=== PATIENT | female | born 1940 | race Caucasian/White ===

== ENCOUNTER 2018-07-16 03:30 | Emergency (ER) | payer MEDICARE, BC ==
[~2018-07-16] VITALS: Ht 170.2 cm; Wt 75.0 kg
[~2018-07-16 03:30] MED LIST: ATEN50TA8 PO; DONE10TA37 PO; FLUO-186 PO; LISI10TA4 PO; LOVA40TA76 PO; MECL12.584 PO; MEMA10TA PO; METF-436 PO; OXYB5TAB80 PO; PIOG30TA2 PO
[2018-07-16] MEDS ORDERED: ONDA4TAB12 PO (05:11)
[2018-07-16] MEDS ORDERED: HYDR-3965 PO (05:11)
[2018-07-16] MEDS ORDERED: ondansetron 4mg rapidly disintigrating tab PO ONE (05:25)
[2018-07-16] MEDS ORDERED: HYDROcodone/acetaminophen 5mg/325mg tablet PO ONE (05:25)
[2018-07-16 05:31] VITALS: BP 160/62
== END 2018-07-16 05:32 | disposition home or self-care (01) ==
LOC: ER 03:31
DX: S32.19XA Other fracture of sacrum, initial encounter for closed fracture (principal); S00.83XA Contusion of other part of head, initial encounter; M25.551 Pain in right hip; M54.5 Low back pain; M19.90 Unspecified osteoarthritis, unspecified site; Z90.49 Acquired absence of other specified parts of digestive tract; Z98.890 Other specified postprocedural states; Z79.899 Other long term (current) drug therapy; W01.198A Fall on same level from slipping, tripping and stumbling with subsequent striking against other object, initial encounter; Y93.89 Activity, other specified; Y92.89 Other specified places as the place of occurrence of the external cause; Y99.9 Unspecified external cause status
CPT/HCPCS: 70450; 72131; 72192; 99284

== ENCOUNTER 2018-07-19 10:42 | Inpatient (IN) | payer MEDICARE, BC ==
[~2018-07-19] VITALS: Ht 167.6 cm; Wt 85.0 kg
[~2018-07-19 10:42] MED LIST changes: +HYDR-3965 PO; +ONDA4TAB12 PO
[2018-07-19] MEDS ORDERED: normal saline 1000ML IV soln IVB ONE (11:05)
[2018-07-19 11:30] LABS: BASOPHILS % (AUTO) 0.1 % (0-1); EOSINOPHILS # (AUTO) 0.1 X10'3 (0-0.9); EOSINOPHILS % (AUTO) 2.1 % (0-6); HEMATOCRIT 39.9 % (35.0-45.0); HEMOGLOBIN 13.1 g/dl (12.0-16.0); LYMPHOCYTES % (AUTO) 14.7 % (21-51); MEAN CORPUSCULAR HEMOGLOBIN 30.7 PG (27.0-31.0); MEAN CORPUSCULAR HGB CONC 32.9 % (33.0-36.5); MEAN CORPUSCULAR VOLUME 93.4 FL (78-98); MEAN PLATELET VOLUME 8.5 FL (7.4-10.4); MONOCYTES # (AUTO) 0.8 X10'3 (0-0.9); MONOCYTES % (AUTO) 12.3 % (2-12); NEUTROPHILS # (AUTO) 4.7 X10'3 (1.8-7.7); NEUTROPHILS % (AUTO) 70.8 % (42-75); PLATELET COUNT 158 X10'3 (140-440); RED BLOOD COUNT 4.27 X10'6 (4.20-5.60); RED CELL DISTRIBUTION WIDTH 13.3 % (11.5-14.5); WHITE BLOOD COUNT 6.7 X10'3 (4.5-11.0)
[2018-07-19 11:43] LABS: ALANINE AMINOTRANSFERASE 24 U/L (12-78); ALBUMIN 3.2 G/DL (3.4-5.0); ALBUMIN/GLOBULIN RATIO 0.8 (1.1-1.5); ALKALINE PHOSPHATASE 111 IU/L (46-116); ANION GAP 10 (8-16); ASPARTATE AMINO TRANSFERASE 26 U/L (10-37); BILIRUBIN,TOTAL 0.9 MG/DL (0.1-1.0); BLOOD UREA NITROGEN 19 MG/DL (7-18); BUN/CREATININE RATIO 17.9 (6.6-38.0); CALCIUM 9.4 MG/DL (8.5-10.1); CHLORIDE 100 MMOL/L (99-107); CREATININE 1.06 MG/DL (0.40-0.90); GLUCOSE 112 MG/DL (70-104); POTASSIUM 3.3 MMOL/L (3.5-5.1); SODIUM 140 MMOL/L (135-145); TOTAL PROTEIN 7.3 G/DL (6.4-8.2); eGFR 50 ML/MIN
[2018-07-19 12:22] LABS: CLARITY,URINE SLIGHTLY CLOUDY (Clear); COLOR,URINE YELLOW (Yellow); GLUCOSE, URINE NEGATIVE (Neg); KETONES,URINE TRACE mg/dl (Neg); LEUKOCYTE ESTERASE ,URINE NEGATIVE (Neg); NITRITES, URINE NEGATIVE (Neg); OCCULT BLOOD,URINE LARGE (Neg); PROTEIN,URINE 100 mg/dl (Neg)
[2018-07-19 12:29] LABS: UA COLLECTION TYPE STRAIGHT CATH
[2018-07-19 12:31] LABS: HYALINE CASTS 0-3 /LPF (NEGATIVE); SQUAMOUS EPITHELIAL CELL,UR MANY /LPF (FEW)
[2018-07-19 12:32] LABS: BACTERIA,URINE 1+ /HPF (Neg); RBC,URINE 20-50 /HPF (0-2); WBC,URINE 0-4 /HPF (0-4)
[2018-07-19] MEDS ORDERED: fentaNYL/PF 50MCG/1 ML 2ML syringe IV ONE (12:35)
[2018-07-19 13:12] LABS: CKMB RELATIVE INDEX 1.7 RATIO (0-2.5); CREATINE KINASE 255 U/L (26-192)
[2018-07-19] MEDS ORDERED: HYDROcodone/acetaminophen 5mg/325mg tablet PO PRN (13:25)
[2018-07-19] MEDS ORDERED: ondansetron/PF 4mg/2ml inj IV PRN (13:25)
[2018-07-19] MEDS ORDERED: magnesium hydroxide 30ml (MOM) UD suspension PO PRN (13:25)
[2018-07-19] MEDS ORDERED: morphine 2 MG/ML inj. syringe IV PRN ×2 (13:25)
[2018-07-19] MEDS ORDERED: acetaminophen 325mg tablet PO PRN ×2 (13:25)
[2018-07-19] MEDS ORDERED: potassium Cl 40MEQ/NS 500ml 500 ML IV PRN ×2 (13:25)
[2018-07-19] MEDS ORDERED: potassium Cl 20 mEq SR tablet PO PRN (13:25)
[2018-07-19] MEDS ORDERED: magnesium 4gm in 100ml NS 100 ML IV PRN (13:25)
--- NOTE | 2018-07-19 16:48 | NUR ---
SPOKE TO NALLELY IN RT SHE STATES THAT WE DO NOT HAVE A RUMMBLE VEST OR COUGH ASSIST, I WILL PAGE HOSPITALIST AND REQUEST AN ORDER FOR THE FAMILY TO BRING THERES IN AND ALLOW THEM TO USE THEM TO TREAT HER
[2018-07-19] MEDS: potassium Cl 20 mEq SR tablet PO PRN (18:10)
[2018-07-19] MEDS: HYDROcodone/acetaminophen 10/325mg tab PO PRN (18:26)
[2018-07-19] MEDS ORDERED: ondansetron 4mg rapidly disintigrating tab PO PRN (18:45)
[2018-07-19] MEDS ORDERED: meclizine 12.5mg tablet PO SCH (18:45)
--- NOTE | 2018-07-19 19:09 | NUR ---
CALLED TO GIVE REPORT, SPOKE TO RIVERA LEON THAT NURSES HAVE NOT BEEN GIVEN THE STICKERS WITH THE PT NAMES ON THEM YET SO THEY DONT KNOW THAT THEY ARE BEING GIVEN PATIENTS, THEY WILL CALL BACK
--- NOTE | 2018-07-19 19:37 | NUR ---
CALLED TO GIVE REPORT, WAS TOLD THAT THE NURSE, CLAY, IS IN A PRECAUTION ROOM GIVING MEDS, WILL CALL ME BACK
[2018-07-19] MEDS: memantine 5mg tablet PO SCH (20:15)
[2018-07-19] MEDS: heparin, porcine 5000 units/ml vial SQ SCH (20:15)
[2018-07-19] MEDS: metFORMIN 500mg tablet PO SCH (20:15)
[2018-07-19 20:29] VITALS: BP 165/66
[2018-07-19 22:08] LABS: HEMOGLOBIN A1C 6.2 % (4.5-6.2)
[2018-07-20] MEDS: HYDROcodone/acetaminophen 10/325mg tab PO PRN ×5 (05:00→23:53)
[2018-07-20 05:50] LABS: BASOPHILS % (AUTO) 0.3 % (0-1); EOSINOPHILS # (AUTO) 0.1 X10'3 (0-0.9); EOSINOPHILS % (AUTO) 2.3 % (0-6); HEMATOCRIT 39.2 % (35.0-45.0); HEMOGLOBIN 13.2 g/dl (12.0-16.0); LYMPHOCYTES # (AUTO) 1.2 X10'3 (1.1-4.8); LYMPHOCYTES % (AUTO) 19.8 % (21-51); MEAN CORPUSCULAR HEMOGLOBIN 31.2 PG (27.0-31.0); MEAN CORPUSCULAR HGB CONC 33.7 % (33.0-36.5); MEAN CORPUSCULAR VOLUME 92.7 FL (78-98); MEAN PLATELET VOLUME 8.8 FL (7.4-10.4); MONOCYTES # (AUTO) 0.6 X10'3 (0-0.9); MONOCYTES % (AUTO) 10.3 % (2-12); NEUTROPHILS # (AUTO) 4.1 X10'3 (1.8-7.7); NEUTROPHILS % (AUTO) 67.3 % (42-75); PLATELET COUNT 152 X10'3 (140-440); RED BLOOD COUNT 4.23 X10'6 (4.20-5.60); RED CELL DISTRIBUTION WIDTH 13.6 % (11.5-14.5); WHITE BLOOD COUNT 6.1 X10'3 (4.5-11.0)
[2018-07-20 06:15] LABS: ANION GAP 14 (8-16); BLOOD UREA NITROGEN 18 MG/DL (7-18); BUN/CREATININE RATIO 18.9 (6.6-38.0); CALCIUM 9.2 MG/DL (8.5-10.1); CHLORIDE 102 MMOL/L (99-107); CREATININE 0.95 MG/DL (0.40-0.90); GLUCOSE 83 MG/DL (70-104); MAGNESIUM 1.5 MG/DL (1.5-2.4); POTASSIUM 3.4 MMOL/L (3.5-5.1); SODIUM 141 MMOL/L (135-145); TOTAL CARBON DIOXIDE 25.1 MMOL/L (24-32); eGFR 57 ML/MIN
--- NOTE | 2018-07-20 06:30 | NUR ---
Patient in room MAXX 355. I have received report from LACHO Elliott and had the opportunity to ask questions and assume patient care.
[2018-07-20 07:00] VITALS: BP 144/71
[2018-07-20] MEDS: FLUoxetine 10mg capsule PO SCH (08:30)
[2018-07-20] MEDS: potassium Cl 20 mEq SR tablet PO PRN ×3 (08:30→16:43)
[2018-07-20] MEDS: pioglitazone 15mg tablet PO SCH (08:30)
[2018-07-20] MEDS: atorvastatin 20mg tablet PO SCH (08:30)
[2018-07-20] MEDS: memantine 5mg tablet PO SCH ×2 (08:30→20:01)
[2018-07-20] MEDS: metFORMIN 500mg tablet PO SCH ×2 (08:30→20:00)
[2018-07-20] MEDS: donepezil 5mg tablet PO SCH (08:31)
[2018-07-20] MEDS: oxybutynin 5mg tablet PO SCH (08:31)
[2018-07-20] MEDS: lisinopril 10 MG tablet PO SCH (08:31)
[2018-07-20] MEDS: K and/or MAG REPLACEMENT MC SCH (08:32)
[2018-07-20] MEDS: heparin, porcine 5000 units/ml vial SQ SCH ×2 (08:32→20:01)
[2018-07-20] MEDS ORDERED: glucagon, human recombinant 1mg kit SUBCUT PRN (10:30)
[2018-07-20] MEDS ORDERED: dextrose ORAL solution 15 GM/59 ML bottle PO PRN ×2 (10:30)
[2018-07-20] MEDS ORDERED: magnesium hydroxide 30ml (MOM) UD suspension PO PRN (10:30)
[2018-07-20] MEDS ORDERED: MESSAGE TO PHARMACY PO ONE (10:30)
[2018-07-20] MEDS ORDERED: insulin Lispro (HumaLOG) vial - multi-dose SQ SCH (10:30)
[2018-07-20] MEDS ORDERED: dextrose 50%-water 50ml dispensing syringe IV PRN ×2 (10:30)
[2018-07-20 11:30] VITALS: BP 134/68
[2018-07-20] MEDS ORDERED: meclizine 12.5mg tablet PO PRN (16:33)
--- NOTE | 2018-07-20 18:45 | NUR ---
Problems reprioritized. Patient report given, questions answered & plan of care reviewed with LACHO Garces.
[2018-07-20 20:00] VITALS: BP 158/68
[2018-07-20] MEDS: docusate sod 100mg capsule PO SCH (20:00)
[2018-07-20] MEDS ORDERED: insulin glargine (Lantus) pen - multi-dose SQ SCH (21:00)
[2018-07-21] VITALS: BP 149/64
[2018-07-21 05:26] LABS: ALBUMIN 2.8 G/DL (3.4-5.0); ANION GAP 9 (8-16); BLOOD UREA NITROGEN 24 MG/DL (7-18); BUN/CREATININE RATIO 23.5 (6.6-38.0); CALCIUM 8.9 MG/DL (8.5-10.1); CHLORIDE 104 MMOL/L (99-107); CREATININE 1.02 MG/DL (0.40-0.90); GLUCOSE 86 MG/DL (70-104); MAGNESIUM 1.4 MG/DL (1.5-2.4); POTASSIUM 4.3 MMOL/L (3.5-5.1); SODIUM 140 MMOL/L (135-145); TOTAL CARBON DIOXIDE 26.6 MMOL/L (24-32); eGFR 53 ML/MIN
[2018-07-21 05:47] LABS: BASOPHILS % (AUTO) 0.3 % (0-1); EOSINOPHILS # (AUTO) 0.2 X10'3 (0-0.9); EOSINOPHILS % (AUTO) 2.2 % (0-6); HEMATOCRIT 39.2 % (35.0-45.0); HEMOGLOBIN 12.8 g/dl (12.0-16.0); LYMPHOCYTES # (AUTO) 1.2 X10'3 (1.1-4.8); LYMPHOCYTES % (AUTO) 15.5 % (21-51); MEAN CORPUSCULAR HEMOGLOBIN 30.3 PG (27.0-31.0); MEAN CORPUSCULAR HGB CONC 32.6 % (33.0-36.5); MEAN PLATELET VOLUME 8.8 FL (7.4-10.4); MONOCYTES # (AUTO) 0.8 X10'3 (0-0.9); MONOCYTES % (AUTO) 10.3 % (2-12); NEUTROPHILS # (AUTO) 5.7 X10'3 (1.8-7.7); NEUTROPHILS % (AUTO) 71.7 % (42-75); PLATELET COUNT 176 X10'3 (140-440); RED BLOOD COUNT 4.21 X10'6 (4.20-5.60); RED CELL DISTRIBUTION WIDTH 13.5 % (11.5-14.5)
--- NOTE | 2018-07-21 06:41 | NUR ---
Patient in room MAXX 355. I have received report from LACHO Garces and had the opportunity to ask questions and assume patient care.
[2018-07-21 07:03] VITALS: BP 159/75
[2018-07-21] MEDS: K and/or MAG REPLACEMENT MC SCH (08:00)
[2018-07-21] MEDS: docusate sod 100mg capsule PO SCH ×2 (09:04→21:25)
[2018-07-21] MEDS: oxybutynin 5mg tablet PO SCH (09:04)
[2018-07-21] MEDS: atorvastatin 20mg tablet PO SCH (09:04)
[2018-07-21] MEDS: metFORMIN 500mg tablet PO SCH ×2 (09:04→21:25)
[2018-07-21] MEDS: pioglitazone 15mg tablet PO SCH (09:05)
[2018-07-21] MEDS: memantine 5mg tablet PO SCH ×2 (09:05→21:25)
[2018-07-21] MEDS: donepezil 5mg tablet PO SCH (09:05)
[2018-07-21] MEDS: FLUoxetine 10mg capsule PO SCH (09:05)
[2018-07-21] MEDS: lisinopril 10 MG tablet PO SCH (09:05)
[2018-07-21] MEDS: heparin, porcine 5000 units/ml vial SQ SCH ×2 (09:06→21:25)
[2018-07-21] MEDS: magnesium Cl slow-release 64mg tablet PO PRN ×2 (09:07→21:32)
[2018-07-21] MEDS: HYDROcodone/acetaminophen 10/325mg tab PO PRN (09:23)
[2018-07-21] MEDS: ketorolac tromethamine 15mg/ml inj. IV PRN (11:20)
[2018-07-21 12:00] VITALS: BP 115/71
--- NOTE | 2018-07-21 18:43 | NUR ---
Problems reprioritized. Patient report given, questions answered & plan of care reviewed with LACHO Garces.
[2018-07-21 20:00] VITALS: BP 178/63
[2018-07-21] MEDS ORDERED: hydrALAZINE 20mg/ml inj. IV PRN (22:40)
[2018-07-22] VITALS (7 sets, daily range): BP systolic 108–179; BP diastolic 47–79
[2018-07-22] MEDS: HYDROcodone/acetaminophen 10/325mg tab PO PRN ×2 (00:14→05:55)
[2018-07-22] MEDS: ketorolac tromethamine 15mg/ml inj. IV PRN (05:21)
[2018-07-22 05:41] LABS: BASOPHILS % (AUTO) 0.5 % (0-1); EOSINOPHILS # (AUTO) 0.2 X10'3 (0-0.9); EOSINOPHILS % (AUTO) 3.9 % (0-6); HEMATOCRIT 40.2 % (35.0-45.0); HEMOGLOBIN 13.4 g/dl (12.0-16.0); LYMPHOCYTES # (AUTO) 1.4 X10'3 (1.1-4.8); LYMPHOCYTES % (AUTO) 23.1 % (21-51); MEAN CORPUSCULAR HEMOGLOBIN 30.8 PG (27.0-31.0); MEAN CORPUSCULAR HGB CONC 33.3 % (33.0-36.5); MEAN CORPUSCULAR VOLUME 92.6 FL (78-98); MEAN PLATELET VOLUME 8.6 FL (7.4-10.4); MONOCYTES # (AUTO) 0.7 X10'3 (0-0.9); MONOCYTES % (AUTO) 11.7 % (2-12); NEUTROPHILS # (AUTO) 3.6 X10'3 (1.8-7.7); NEUTROPHILS % (AUTO) 60.8 % (42-75); PLATELET COUNT 176 X10'3 (140-440); RED BLOOD COUNT 4.34 X10'6 (4.20-5.60); RED CELL DISTRIBUTION WIDTH 13.1 % (11.5-14.5); WHITE BLOOD COUNT 5.9 X10'3 (4.5-11.0)
[2018-07-22 05:52] LABS: ALBUMIN 2.8 G/DL (3.4-5.0); ANION GAP 11 (8-16); BLOOD UREA NITROGEN 26 MG/DL (7-18); CALCIUM 9.1 MG/DL (8.5-10.1); CHLORIDE 102 MMOL/L (99-107); CREATININE 1.04 MG/DL (0.40-0.90); GLUCOSE 83 MG/DL (70-104); MAGNESIUM 1.5 MG/DL (1.5-2.4); SODIUM 138 MMOL/L (135-145); TOTAL CARBON DIOXIDE 24.9 MMOL/L (24-32); eGFR 51 ML/MIN
--- NOTE | 2018-07-22 06:36 | NUR ---
Patient in room MAXX 355. I have received report from LACHO MCCLAIN and had the opportunity to ask questions and assume patient care.
[2018-07-22] MEDS: oxybutynin 5mg tablet PO SCH (07:26)
[2018-07-22] MEDS: memantine 5mg tablet PO SCH ×2 (07:26→20:53)
[2018-07-22] MEDS: pioglitazone 15mg tablet PO SCH (07:27)
[2018-07-22] MEDS: metFORMIN 500mg tablet PO SCH ×2 (07:27→20:53)
[2018-07-22] MEDS: atorvastatin 20mg tablet PO SCH (07:27)
[2018-07-22] MEDS: FLUoxetine 10mg capsule PO SCH (07:27)
[2018-07-22] MEDS: lisinopril 10 MG tablet PO SCH (07:27)
[2018-07-22] MEDS: docusate sod 100mg capsule PO SCH ×2 (07:27→20:53)
[2018-07-22] MEDS: atenolol 50mg tablet PO SCH (07:31)
[2018-07-22] MEDS: donepezil 5mg tablet PO SCH (07:31)
[2018-07-22] MEDS: heparin, porcine 5000 units/ml vial SQ SCH ×2 (07:32→20:55)
[2018-07-22] MEDS ORDERED: morphine 4 MG/ML inj SYRINge IV PRN (07:49)
[2018-07-22] MEDS: K and/or MAG REPLACEMENT MC SCH (08:00)
[2018-07-22] MEDS: morphine 4 MG/ML inj SYRINge IV PRN (15:21)
[2018-07-22] MEDS ORDERED: LORazepam 0.5 MG tablet PO PRN (17:30)
--- NOTE | 2018-07-22 18:30 | NUR ---
Patient in room MAXX 355. I have received report from Ursula MONK and had the opportunity to ask questions and assume patient care.
--- NOTE | 2018-07-22 18:43 | NUR ---
Problems reprioritized. Patient report given, questions answered & plan of care reviewed with LACHO Mojica.
[2018-07-22] MEDS: traZODone 50mg tablet PO SCH (20:54)
[2018-07-23 06:27] LABS: ANION GAP 11 (8-16); BLOOD UREA NITROGEN 29 MG/DL (7-18); BUN/CREATININE RATIO 26.9 (6.6-38.0); CALCIUM 9.3 MG/DL (8.5-10.1); CHLORIDE 100 MMOL/L (99-107); CREATININE 1.08 MG/DL (0.40-0.90); GLUCOSE 75 MG/DL (70-104); MAGNESIUM 1.4 MG/DL (1.5-2.4); POTASSIUM 4.3 MMOL/L (3.5-5.1); SODIUM 136 MMOL/L (135-145); TOTAL CARBON DIOXIDE 24.8 MMOL/L (24-32); eGFR 49 ML/MIN
[2018-07-23 06:31] LABS: BASOPHILS % (AUTO) 0.4 % (0-1); EOSINOPHILS # (AUTO) 0.2 X10'3 (0-0.9); EOSINOPHILS % (AUTO) 3.4 % (0-6); HEMATOCRIT 43.3 % (35.0-45.0); HEMOGLOBIN 14.1 g/dl (12.0-16.0); LYMPHOCYTES # (AUTO) 1.3 X10'3 (1.1-4.8); LYMPHOCYTES % (AUTO) 19.7 % (21-51); MEAN CORPUSCULAR HEMOGLOBIN 30.4 PG (27.0-31.0); MEAN CORPUSCULAR HGB CONC 32.5 % (33.0-36.5); MEAN CORPUSCULAR VOLUME 93.6 FL (78-98); MONOCYTES # (AUTO) 0.7 X10'3 (0-0.9); MONOCYTES % (AUTO) 10.3 % (2-12); NEUTROPHILS # (AUTO) 4.3 X10'3 (1.8-7.7); NEUTROPHILS % (AUTO) 66.2 % (42-75); PLATELET COUNT 193 X10'3 (140-440); RED BLOOD COUNT 4.63 X10'6 (4.20-5.60); RED CELL DISTRIBUTION WIDTH 13.6 % (11.5-14.5); WHITE BLOOD COUNT 6.5 X10'3 (4.5-11.0)
--- NOTE | 2018-07-23 06:39 | NUR ---
Problems reprioritized. Patient report given, questions answered & plan of care reviewed with Anabell MONK.
[2018-07-23 08:00] VITALS: BP 142/49
[2018-07-23] MEDS: metFORMIN 500mg tablet PO SCH ×2 (08:00→20:10)
[2018-07-23] MEDS: atenolol 50mg tablet PO SCH (08:00)
[2018-07-23] MEDS: K and/or MAG REPLACEMENT MC SCH (08:00)
[2018-07-23] MEDS: atorvastatin 20mg tablet PO SCH (08:00)
[2018-07-23] MEDS: oxybutynin 5mg tablet PO SCH (10:10)
[2018-07-23] MEDS: docusate sod 100mg capsule PO SCH ×2 (10:10→20:10)
[2018-07-23] MEDS: lisinopril 10 MG tablet PO SCH (10:12)
[2018-07-23] MEDS: heparin, porcine 5000 units/ml vial SQ SCH ×2 (10:12→20:10)
[2018-07-23] MEDS: pioglitazone 15mg tablet PO SCH (10:13)
[2018-07-23] MEDS: donepezil 5mg tablet PO SCH (10:13)
[2018-07-23] MEDS: memantine 5mg tablet PO SCH ×2 (10:13→20:10)
[2018-07-23] MEDS: FLUoxetine 10mg capsule PO SCH (10:13)
[2018-07-23] MEDS: morphine 4 MG/ML inj SYRINge IV PRN (11:13)
[2018-07-23 12:00] VITALS: BP 121/47
[2018-07-23 18:00] VITALS: BP 126/60
--- NOTE | 2018-07-23 18:30 | NUR ---
Patient in room MAXX 355. I have received report from Anabell MONK and had the opportunity to ask questions and assume patient care.
[2018-07-23] MEDS: traZODone 50mg tablet PO SCH (20:11)
[2018-07-23 23:30] VITALS: BP 123/102
[2018-07-24 05:11] LABS: BASOPHILS % (AUTO) 0.4 % (0-1); EOSINOPHILS # (AUTO) 0.3 X10'3 (0-0.9); EOSINOPHILS % (AUTO) 4.2 % (0-6); HEMATOCRIT 42.2 % (35.0-45.0); HEMOGLOBIN 13.8 g/dl (12.0-16.0); LYMPHOCYTES # (AUTO) 1.4 X10'3 (1.1-4.8); LYMPHOCYTES % (AUTO) 21.9 % (21-51); MEAN CORPUSCULAR HEMOGLOBIN 30.5 PG (27.0-31.0); MEAN CORPUSCULAR HGB CONC 32.7 % (33.0-36.5); MEAN CORPUSCULAR VOLUME 93.2 FL (78-98); MEAN PLATELET VOLUME 8.6 FL (7.4-10.4); MONOCYTES # (AUTO) 0.8 X10'3 (0-0.9); MONOCYTES % (AUTO) 12.4 % (2-12); NEUTROPHILS # (AUTO) 3.8 X10'3 (1.8-7.7); NEUTROPHILS % (AUTO) 61.1 % (42-75); PLATELET COUNT 201 X10'3 (140-440); RED BLOOD COUNT 4.53 X10'6 (4.20-5.60); RED CELL DISTRIBUTION WIDTH 13.4 % (11.5-14.5); WHITE BLOOD COUNT 6.2 X10'3 (4.5-11.0)
[2018-07-24 05:36] LABS: ANION GAP 12 (8-16); BLOOD UREA NITROGEN 33 MG/DL (7-18); BUN/CREATININE RATIO 25.6 (6.6-38.0); CALCIUM 9.1 MG/DL (8.5-10.1); CHLORIDE 100 MMOL/L (99-107); CREATININE 1.29 MG/DL (0.40-0.90); GLUCOSE 80 MG/DL (70-104); MAGNESIUM 1.4 MG/DL (1.5-2.4); POTASSIUM 3.9 MMOL/L (3.5-5.1); SODIUM 137 MMOL/L (135-145); TOTAL CARBON DIOXIDE 24.8 MMOL/L (24-32); eGFR 40 ML/MIN
--- NOTE | 2018-07-24 06:32 | NUR ---
Patient in room MAXX 355. I have received report from LACHO Cronin and had the opportunity to ask questions and assume patient care.
--- NOTE | 2018-07-24 06:38 | NUR ---
Problems reprioritized. Patient report given, questions answered & plan of care reviewed with Gretchen MONK.
[2018-07-24 07:00] VITALS: BP 118/62
[2018-07-24] MEDS: K and/or MAG REPLACEMENT MC SCH (08:00)
[2018-07-24] MEDS: docusate sod 100mg capsule PO SCH ×2 (08:00→20:00)
[2018-07-24] MEDS: memantine 5mg tablet PO SCH ×2 (08:45→21:26)
[2018-07-24] MEDS: oxybutynin 5mg tablet PO SCH (08:45)
[2018-07-24] MEDS: FLUoxetine 10mg capsule PO SCH (08:45)
[2018-07-24] MEDS: donepezil 5mg tablet PO SCH (08:45)
[2018-07-24] MEDS: pioglitazone 15mg tablet PO SCH (08:45)
[2018-07-24] MEDS: metFORMIN 500mg tablet PO SCH ×2 (08:45→21:26)
[2018-07-24] MEDS: atorvastatin 20mg tablet PO SCH (08:45)
[2018-07-24] MEDS: atenolol 50mg tablet PO SCH (08:48)
[2018-07-24] MEDS: lisinopril 10 MG tablet PO SCH (08:48)
[2018-07-24] MEDS: heparin, porcine 5000 units/ml vial SQ SCH ×2 (08:48→21:26)
[2018-07-24] MEDS: magnesium Cl slow-release 64mg tablet PO SCH ×2 (09:59→21:26)
[2018-07-24 12:00] VITALS: BP 133/58
--- NOTE | 2018-07-24 18:42 | NUR ---
Problems reprioritized. Patient report given, questions answered & plan of care reviewed with LACHO Ba.
[2018-07-24 20:00] VITALS: BP 129/57
[2018-07-24] MEDS: traZODone 50mg tablet PO SCH (21:26)
[2018-07-25] VITALS: BP 133/65
[2018-07-25] MEDS: mag hydrox/Alum hydrox/simeth 30ml oral suspension PO PRN ×2 (01:14→11:50)
--- NOTE | 2018-07-25 02:29 | NUR ---
Patient found oxybutinine in bed and gave to nurses aid. Discarded medication. Will continue to monitor for needs.
--- NOTE | 2018-07-25 03:30 | NUR ---
Pt c/o indigestion after administration of malox. Rec'd order for protonix. Just prior to admin, pt had emesis; dark brown, approx 50 -100 mL.
[2018-07-25] MEDS: pantoprazole 40mg Tablet.DR PO SCH ×2 (03:31→08:58)
--- NOTE | 2018-07-25 06:30 | NUR ---
Patient in room MAXX 355. I have received report from LACHO Ba and had the opportunity to ask questions and assume patient care.
--- NOTE | 2018-07-25 06:40 | NUR ---
Problems reprioritized. Patient report given, questions answered & plan of care reviewed with LACHO Brown.
[2018-07-25 07:00] VITALS: BP 110/74
[2018-07-25] MEDS: K and/or MAG REPLACEMENT MC SCH (08:00)
[2018-07-25] MEDS: magnesium Cl slow-release 64mg tablet PO SCH ×2 (08:52→20:48)
[2018-07-25] MEDS: FLUoxetine 10mg capsule PO SCH (08:52)
[2018-07-25] MEDS: memantine 5mg tablet PO SCH ×2 (08:53→20:48)
[2018-07-25] MEDS: docusate sod 100mg capsule PO SCH ×2 (08:53→20:00)
[2018-07-25] MEDS: atenolol 50mg tablet PO SCH (08:53)
[2018-07-25] MEDS: metFORMIN 500mg tablet PO SCH ×2 (08:53→20:48)
[2018-07-25] MEDS: donepezil 5mg tablet PO SCH (08:54)
[2018-07-25] MEDS: heparin, porcine 5000 units/ml vial SQ SCH ×2 (08:54→20:48)
[2018-07-25] MEDS: oxybutynin 5mg tablet PO SCH (08:54)
[2018-07-25] MEDS: atorvastatin 20mg tablet PO SCH (08:54)
[2018-07-25] MEDS: lisinopril 10 MG tablet PO SCH (08:55)
[2018-07-25] MEDS: pioglitazone 15mg tablet PO SCH (09:01)
--- NOTE | 2018-07-25 11:36 | NUR ---
Pt has had emesis x2 today. Pt had no c/p nausea prior to either vomiting & after stated she was not nauseous either. Will inform Dr Lopez today when he arrives to the floor.
[2018-07-25 12:00] VITALS: BP 164/69
--- NOTE | 2018-07-25 12:39 | NUR ---
Pt returned to room 340A.
[2018-07-25] MEDS: normal saline 1000ml 1,000 ML IV SCH (15:40)
--- NOTE | 2018-07-25 18:25 | NUR ---
Problems reprioritized. Patient report given, questions answered & plan of care reviewed with LACHO Ba.
[2018-07-25 20:00] VITALS: BP 160/72
[2018-07-25] MEDS: traZODone 50mg tablet PO SCH (20:49)
--- NOTE | 2018-07-25 23:32 | NUR ---
Pt weeping in bed. States she just got off the phone w her son who yelled at her because it was 11 pm. States how she hates to be in the hospital because she is unable to tell if it is day or night with the light on in the room all of the time. Dimmed the lighting in the room and cracked the door. Reminded pt to ask us for the time of day/night and we would be happy to reorient. Addendum: 07/25/18 at 2334 by Maite Pantoja RN Amended: Links added.
[2018-07-26] VITALS: BP 116/56
[2018-07-26] MEDS: normal saline 1000ml 1,000 ML IV SCH ×2 (05:48→10:34)
--- NOTE | 2018-07-26 06:30 | NUR ---
Patient in room AMXX 355. I have received report from Jesenia Tinajero RN and had the opportunity to ask questions and assume patient care.
[2018-07-26 06:33] LABS: BASOPHILS % (AUTO) 0.3 % (0-1); EOSINOPHILS % (AUTO) 0.5 % (0-6); HEMATOCRIT 43.1 % (35.0-45.0); HEMOGLOBIN 14.1 g/dl (12.0-16.0); LYMPHOCYTES % (AUTO) 20.1 % (21-51); MEAN CORPUSCULAR HEMOGLOBIN 30.5 PG (27.0-31.0); MEAN CORPUSCULAR HGB CONC 32.7 % (33.0-36.5); MEAN CORPUSCULAR VOLUME 93.3 FL (78-98); MONOCYTES % (AUTO) 10.2 % (2-12); NEUTROPHILS # (AUTO) 6.7 X10'3 (1.8-7.7); NEUTROPHILS % (AUTO) 68.9 % (42-75); PLATELET COUNT 220 X10'3 (140-440); RED BLOOD COUNT 4.62 X10'6 (4.20-5.60); RED CELL DISTRIBUTION WIDTH 13.5 % (11.5-14.5); WHITE BLOOD COUNT 9.7 X10'3 (4.5-11.0)
--- NOTE | 2018-07-26 06:48 | NUR ---
Problems reprioritized. Patient report given, questions answered & plan of care reviewed with LACHO Lamar.
[2018-07-26 07:00] VITALS: BP 148/45
[2018-07-26 07:05] LABS: ALANINE AMINOTRANSFERASE 54 U/L (12-78); ALBUMIN 2.9 G/DL (3.4-5.0); ALBUMIN/GLOBULIN RATIO 0.7 (1.1-1.5); ALKALINE PHOSPHATASE 144 IU/L (46-116); ANION GAP 8 (8-16); ASPARTATE AMINO TRANSFERASE 37 U/L (10-37); BILIRUBIN,TOTAL 0.5 MG/DL (0.1-1.0); BLOOD UREA NITROGEN 41 MG/DL (7-18); BUN/CREATININE RATIO 31.3 (6.6-38.0); CALCIUM 9.5 MG/DL (8.5-10.1); CHLORIDE 99 MMOL/L (99-107); CREATININE 1.31 MG/DL (0.40-0.90); GLUCOSE 96 MG/DL (70-104); MAGNESIUM 1.7 MG/DL (1.5-2.4); POTASSIUM 3.9 MMOL/L (3.5-5.1); SODIUM 138 MMOL/L (135-145); TOTAL PROTEIN 6.9 G/DL (6.4-8.2); eGFR 39 ML/MIN
[2018-07-26] MEDS: atenolol 50mg tablet PO SCH (08:00)
[2018-07-26] MEDS: K and/or MAG REPLACEMENT MC SCH (08:00)
[2018-07-26] MEDS ORDERED: lisinopril 10 MG tablet PO SCH (08:00)
[2018-07-26] MEDS: pantoprazole 40mg Tablet.DR PO SCH (10:26)
[2018-07-26] MEDS: pioglitazone 15mg tablet PO SCH (10:26)
[2018-07-26] MEDS: atorvastatin 20mg tablet PO SCH (10:27)
[2018-07-26] MEDS: donepezil 5mg tablet PO SCH (10:27)
[2018-07-26] MEDS: docusate sod 100mg capsule PO SCH (10:27)
[2018-07-26] MEDS: metFORMIN 500mg tablet PO SCH (10:27)
[2018-07-26] MEDS: oxybutynin 5mg tablet PO SCH (10:27)
[2018-07-26] MEDS: magnesium Cl slow-release 64mg tablet PO SCH (10:28)
[2018-07-26] MEDS: memantine 5mg tablet PO SCH (10:28)
[2018-07-26] MEDS: FLUoxetine 10mg capsule PO SCH (10:28)
[2018-07-26] MEDS: heparin, porcine 5000 units/ml vial SQ SCH (10:29)
[2018-07-26 11:00] VITALS: BP 119/43
[2018-07-26 11:05] VITALS: BP 82/43
--- NOTE | 2018-07-26 11:46 | NUR ---
Report given to YONI Fernandez. Patient has rock picker time of 1200.
--- NOTE | 2018-07-26 12:25 | NUR ---
Patient discharged. PIV removed: cath tip intact. Packet sent with [facility] personnel. Patient escorted out and transferred to [facility] by ken cargo.
== END 2018-07-26 12:35 | DRG 552 ==
LOC: ER 10:44 → ED HOLD 13:21 → SUR 3N 19:50
PROVIDERS: ADMIT Hospitalist; ATTEND Family Medicine
DX: S32.119A Unspecified Zone I fracture of sacrum, initial encounter for closed fracture (principal); S32.2XXA Fracture of coccyx, initial encounter for closed fracture; G30.9 Alzheimer's disease, unspecified; N18.9 Chronic kidney disease, unspecified; E11.21 Type 2 diabetes mellitus with diabetic nephropathy; E11.22 Type 2 diabetes mellitus with diabetic chronic kidney disease; E86.0 Dehydration; E87.6 Hypokalemia; E78.5 Hyperlipidemia, unspecified; W06.XXXA Fall from bed, initial encounter; F02.80 Dementia in other diseases classified elsewhere, unspecified severity, without behavioral disturbance, psychotic disturbance, mood disturbance, and anxiety; I12.9 Hypertensive chronic kidney disease with stage 1 through stage 4 chronic kidney disease, or unspecified chronic kidney disease; F32.9 Major depressive disorder, single episode, unspecified; M19.90 Unspecified osteoarthritis, unspecified site; R29.6 Repeated falls; R11.2 Nausea with vomiting, unspecified; Z90.49 Acquired absence of other specified parts of digestive tract; Z79.899 Other long term (current) drug therapy; Y93.89 Activity, other specified; Y92.89 Other specified places as the place of occurrence of the external cause; Y99.8 Other external cause status
CPT/HCPCS: 36415; 71045; 80048; 80053; 81001; 82550; 82553; 82948; 83036; 83735; 85025; 87070; 96374; 97110; 97116; 97162; 97530; 99285; G0378; J0360; J1644; J1815; J1885; J2270; J3010; J7030; J8597

== ENCOUNTER 2020-01-08 14:24 | Observation (INO) | payer MEDICARE, BC ==
[~2020-01-08] VITALS: Ht 170.2 cm; Wt 85.0 kg
[~2020-01-08 14:24] MED LIST changes: -HYDR-3965 PO; +MECL-184 PO; -MECL12.584 PO
[2020-01-08 15:30] LABS: CLARITY,URINE SLIGHTLY CLOUDY (Clear); COLOR,URINE STRAW (Yellow); GLUCOSE, URINE NEGATIVE (Neg); KETONES,URINE NEGATIVE (Neg); LEUKOCYTE ESTERASE ,URINE NEGATIVE (Neg); NITRITES, URINE NEGATIVE (Neg); OCCULT BLOOD,URINE MODERATE (Neg); PH,URINE 6.5 (4.8-8.0); PROTEIN,URINE NEGATIVE (Neg); UROBILINOGEN,URINE 0.2 E.U/dL (0.2-1.0)
[2020-01-08 15:36] LABS: UA COLLECTION TYPE STRAIGHT CATH
[2020-01-08 15:38] LABS: MUCUS STRANDS FEW /LPF (Neg); SQUAMOUS EPITHELIAL CELL,UR MANY /LPF (FEW); TRANSITIONAL EPI CELLS,URINE FEW /HPF
[2020-01-08 15:39] LABS: WBC,URINE 0-4 /HPF (0-4)
[2020-01-08 15:40] LABS: BACTERIA,URINE 1+ /HPF (Neg); CAL OXALATE CRYSTALS FEW /HPF (NEGATIVE)
[2020-01-08 15:45] LABS: BASOPHILS % (AUTO) 0.5 % (0-1); EOSINOPHILS % (AUTO) 0.5 % (0-6); HEMOGLOBIN 13.5 g/dl (12.0-16.0); LYMPHOCYTES # (AUTO) 1.4 X10'3 (1.1-4.8); LYMPHOCYTES % (AUTO) 16.2 % (21-51); MEAN CORPUSCULAR HEMOGLOBIN 31.9 PG (27.0-31.0); MEAN CORPUSCULAR HGB CONC 32.8 g/dL (33.0-36.5); MEAN PLATELET VOLUME 8.8 FL (7.4-10.4); MONOCYTES # (AUTO) 0.6 X10'3 (0-0.9); MONOCYTES % (AUTO) 7.4 % (2-12); NEUTROPHILS # (AUTO) 6.3 X10'3 (1.8-7.7); NEUTROPHILS % (AUTO) 75.4 % (42-75); PLATELET COUNT 156 X10'3 (140-440); RED BLOOD COUNT 4.23 X10'6 (4.20-5.60); RED CELL DISTRIBUTION WIDTH 13.4 % (11.5-14.5); WHITE BLOOD COUNT 8.3 X10'3 (4.5-11.0)
[2020-01-08] MEDS ORDERED: normal saline 1000ml 1,000 ML IV ONE (16:00)
[2020-01-08 16:02] LABS: ALANINE AMINOTRANSFERASE 17 U/L (12-78); ALBUMIN 3.3 G/DL (3.4-5.0); ALKALINE PHOSPHATASE 103 IU/L (46-116); ANION GAP 8 (8-16); ASPARTATE AMINO TRANSFERASE 23 U/L (10-37); BILIRUBIN,TOTAL 0.8 MG/DL (0.1-1.0); BLOOD UREA NITROGEN 15 MG/DL (7-18); BUN/CREATININE RATIO 12.2 (6.6-38.0); CALCIUM 8.6 MG/DL (8.5-10.1); CHLORIDE 106 MMOL/L (99-107); CREATININE 1.23 MG/DL (0.40-0.90); GLUCOSE 118 MG/DL (70-104); POTASSIUM 4.6 MMOL/L (3.5-5.1); SODIUM 141 MMOL/L (135-145); TOTAL CARBON DIOXIDE 27.3 MMOL/L (24-32); TOTAL PROTEIN 6.7 G/DL (6.4-8.2); eGFR 42 ML/MIN
[2020-01-08] MEDS ORDERED: ATEN-27 PO (17:50)
[2020-01-08] MEDS ORDERED: ATOR20TA66 PO (17:50)
[2020-01-08] MEDS ORDERED: DOCU100C40 PO (17:50)
[2020-01-08] MEDS ORDERED: TRAZ-251 PO (17:50)
[2020-01-08] MEDS ORDERED: BUPR75TA8 PO (17:50)
[2020-01-08] MEDS ORDERED: LORA-269 PO (17:50)
--- NOTE | 2020-01-08 21:25 | NUR ---
PT CONTINUALLY CALLS OUT NURSE DESPITE BEING REORIENTED AND EDUCATED TO THE CALL LIGHT. SHE IS EASILY REORIENTED AND APPOLOGIZES AFTER BEING REMINDED OF THINGS. PT CURRENTLY HAS A PURE WICK IN PLACE BUT CAN'T REMEMBER THAT IT IS THERE AND SUBSEQUENTLY CALLS OUT TO USE THE RESTROOM APPROX EVERY 3 MINS.
[2020-01-09] MEDS ORDERED: diphenhydrAMINE 25mg capsule PO ONE (01:45)
[2020-01-09] MEDS ORDERED: LORazepam 0.5 MG tablet PO PRN (01:45)
[2020-01-09] MEDS ORDERED: mag hydrox/Alum hydrox/simeth 30ml oral suspension PO PRN (01:50)
[2020-01-09] MEDS ORDERED: acetaminophen 325mg tablet PO PRN (01:50)
[2020-01-09] MEDS ORDERED: magnesium hydroxide 30ml (MOM) UD suspension PO PRN (01:50)
[2020-01-09] MEDS ORDERED: ondansetron/PF 4mg/2ml inj IV PRN (01:50)
--- NOTE | 2020-01-09 02:18 | NUR ---
Pt constantly removing monitoring equipment as well as PureWick catheter. Repeatedly yelling and screaming for unneeded assistance and only wanting to complain about ambient noise.
[2020-01-09 02:45] VITALS: BP 172/49
[2020-01-09 05:48] VITALS: BP 146/41
--- NOTE | 2020-01-09 06:24 | NUR ---
Patient in room ORTHO 4021. I have received report from Judy MONK and had the opportunity to ask questions and assume patient care.
[2020-01-09] MEDS: heparin, porcine 5000 units/ml vial SQ SCH ×2 (08:09→19:38)
[2020-01-09] MEDS ORDERED: LORazepam 2 mg/ml vial IV ONE (08:25)
[2020-01-09 10:00] VITALS: BP 124/58
--- NOTE | 2020-01-09 17:30 | NUR ---
Called Dr. Restrepo to reconcile medications and order carotids ultrasound. She ordered the ultrasound.
[2020-01-09 18:00] VITALS: BP 158/69
--- NOTE | 2020-01-09 18:35 | NUR ---
Problems reprioritized. Patient report given, questions answered & plan of care reviewed with Trang MONK.
--- NOTE | 2020-01-09 18:35 | NUR ---
Patient in room ORTHO 4021. I have received report from Margareth MONK and had the opportunity to ask questions and assume patient care.
[2020-01-09 22:00] VITALS: BP 146/60
--- NOTE | 2020-01-10 05:48 | NUR ---
Patient pulled IV out
[2020-01-10 06:10] VITALS: BP 133/64
--- NOTE | 2020-01-10 06:24 | NUR ---
Problems reprioritized. Patient report given, questions answered & plan of care reviewed with Margareth MONK.
--- NOTE | 2020-01-10 06:27 | NUR ---
Patient in room ORTHO 4021. I have received report from Trang MONK and had the opportunity to ask questions and assume patient care.
--- NOTE | 2020-01-10 06:29 | NUR ---
Patient in room ORTHO 4021. I have received report from Trang MONK and had the opportunity to ask questions and assume patient care.
[2020-01-10 06:37] LABS: BASOPHILS % (AUTO) 0.8 % (0-1); EOSINOPHILS # (AUTO) 0.1 X10'3 (0-0.9); EOSINOPHILS % (AUTO) 1.2 % (0-6); HEMATOCRIT 42.2 % (35.0-45.0); HEMOGLOBIN 14.1 g/dl (12.0-16.0); LYMPHOCYTES # (AUTO) 1.6 X10'3 (1.1-4.8); LYMPHOCYTES % (AUTO) 35.4 % (21-51); MEAN CORPUSCULAR HEMOGLOBIN 32.3 PG (27.0-31.0); MEAN CORPUSCULAR HGB CONC 33.5 g/dL (33.0-36.5); MEAN CORPUSCULAR VOLUME 96.4 FL (78-98); MEAN PLATELET VOLUME 8.6 FL (7.4-10.4); MONOCYTES # (AUTO) 0.5 X10'3 (0-0.9); MONOCYTES % (AUTO) 10.7 % (2-12); NEUTROPHILS # (AUTO) 2.4 X10'3 (1.8-7.7); NEUTROPHILS % (AUTO) 51.9 % (42-75); PLATELET COUNT 144 X10'3 (140-440); RED BLOOD COUNT 4.37 X10'6 (4.20-5.60); RED CELL DISTRIBUTION WIDTH 13.8 % (11.5-14.5); WHITE BLOOD COUNT 4.6 X10'3 (4.5-11.0)
[2020-01-10 07:00] LABS: ALANINE AMINOTRANSFERASE 21 U/L (12-78); ALBUMIN 3.5 G/DL (3.4-5.0); ALKALINE PHOSPHATASE 105 IU/L (46-116); ANION GAP 9 (8-16); ASPARTATE AMINO TRANSFERASE 22 U/L (10-37); BILIRUBIN,TOTAL 0.6 MG/DL (0.1-1.0); BLOOD UREA NITROGEN 16 MG/DL (7-18); BUN/CREATININE RATIO 10.7 (6.6-38.0); CALCIUM 9.1 MG/DL (8.5-10.1); CHLORIDE 106 MMOL/L (99-107); CREATININE 1.49 MG/DL (0.40-0.90); GLUCOSE 98 MG/DL (70-104); POTASSIUM 3.7 MMOL/L (3.5-5.1); SODIUM 141 MMOL/L (135-145); TOTAL CARBON DIOXIDE 25.9 MMOL/L (24-32); eGFR 34 ML/MIN
[2020-01-10] MEDS: heparin, porcine 5000 units/ml vial SQ SCH (08:38)
[2020-01-10 10:00] VITALS: BP 128/51
--- NOTE | 2020-01-10 12:32 | NUR ---
I paged Dr. Restrepo to see if she wanted to resume patient home medications while we are waiting for echo and carotids results.
--- NOTE | 2020-01-10 16:00 | NUR ---
Patient discharged per Dr. Restrepo. I told her echo and carotids were negative. I talked to patient son he came to pick her up at this time. [facility]
--- NOTE | 2020-01-15 09:22 | NUR ---
Case Management DC follow up: LM/VM re post DC status, questions, concerns. Arnold KIMBERLY ChowdhuryRenay Addendum: 01/15/20 at 1442 by Ade Cat RN Case Management DC follow up: spoke to pt son/POA, Arnold Chowdhury, via telephone. S/P:weakness, vertigo Reports: pt felt "nauseated, faint, dizzy first night after returning home ([facility]). they gave pt zofran" symptoms resolved, no issues since first night home. Denies for pt: acute cp, SOB, resp distress, vertigo, syncope,weakness, blurry vision, N/V, WHALEY, emergent general pain, abd tenderness/distension, fever. Verbalizes understanding of s/s that warrant 9-11/ER visit for evaluation. Verbalizes understanding of Rx and why prescribed, resumes current Rx/taking as ordered, no ase r/t polypharmacy. Acknowledges need to schedule/keep follow up appts w/ PCP/Dr Duenas is the facility's MD, visits regularly. Needs met, questions answered at DC, no further questions at this time.
== END 2020-01-10 16:05 | disposition home or self-care (01) ==
LOC: ER 14:24 → ED HOLD 01-09 01:52 → UNDOADMOB 01-09 01:54 → ED HOLD 01-09 01:54 → ORTHO 4S 01-09 02:22
PROVIDERS: ADMIT Internal Medicine; ATTEND Internal Medicine
DX: R53.1 Weakness (principal); R42 Dizziness and giddiness; I10 Essential (primary) hypertension; E78.5 Hyperlipidemia, unspecified; F32.9 Major depressive disorder, single episode, unspecified; F03.90 Unspecified dementia, unspecified severity, without behavioral disturbance, psychotic disturbance, mood disturbance, and anxiety; M19.90 Unspecified osteoarthritis, unspecified site; Z90.49 Acquired absence of other specified parts of digestive tract; Z79.899 Other long term (current) drug therapy
CPT/HCPCS: 36415; 70450; 70544; 70547; 70551; 71045; 72125; 80053; 81001; 84484; 85025; 87081; 93005; 93306; 93880; 96361; 96372; 96374; 96375; 97161; 97530; 99285; G0378; J1644; J2060; J2405; J7030; Q0163

== ENCOUNTER 2024-04-05 16:30 | Observation (INO) | payer MEDICARE, BC ==
[~2024-04-05] VITALS: Ht 172.7 cm; Wt 80.9 kg
[~2024-04-05 16:30] MED LIST changes: +ATEN-27 PO; -ATEN50TA8 PO; +ATOR20TA66 PO; +BUPR75TA8 PO; +DOCU100C40 PO; +DONE-55 PO; -DONE10TA37 PO; +LISI10TA27 PO; -LISI10TA4 PO; -LOVA40TA76 PO; -MECL-184 PO; -METF-436 PO; -ONDA4TAB12 PO; -PIOG30TA2 PO; +TRAZ-251 PO
[2024-04-05 23:37] LABS: ALBUMIN 2.5 G/DL (3.4-5.0); ANION GAP 8 (8-16); BASOPHILS % (AUTO) 0.1 % (0-1); BLOOD UREA NITROGEN 35 MG/DL (7-18); BUN/CREATININE RATIO 26.1 (10.0-20.0); CALCIUM 9.4 MG/DL (8.5-10.1); CHLORIDE 101 MMOL/L (99-107); CREATININE 1.34 MG/DL (0.40-0.90); EOSINOPHILS % (AUTO) 0 % (0-6); GLUCOSE 157 MG/DL (70-104); HEMOGLOBIN 13.1 g/dl (12.0-16.0); LYMPHOCYTES # (AUTO) 1.4 X10'3 (1.1-4.8); LYMPHOCYTES % (AUTO) 9.9 % (21-51); MEAN CORPUSCULAR HEMOGLOBIN 30.2 PG (27.0-31.0); MEAN CORPUSCULAR HGB CONC 32.6 g/dL (33.0-36.5); MEAN CORPUSCULAR VOLUME 92.5 FL (78-98); MEAN PLATELET VOLUME 9.5 FL (7.4-10.4); MONOCYTES # (AUTO) 1.4 X10'3 (0-0.9); MONOCYTES % (AUTO) 10.6 % (2-12); NEUTROPHILS # (AUTO) 10.9 X10'3 (1.8-7.7); NEUTROPHILS % (AUTO) 79.4 % (42-75); PLATELET COUNT 208 X10'3 (140-440); RED BLOOD COUNT 4.33 X10'6 (4.20-5.60); RED CELL DISTRIBUTION WIDTH 12.8 % (11.5-14.5); SODIUM 138 MMOL/L (135-145); TOTAL CARBON DIOXIDE 28.9 MMOL/L (24-32); WHITE BLOOD COUNT 13.7 X10'3 (4.5-11.0); eGFR 38 ML/MIN
[2024-04-06] MEDS ORDERED: BISA10SU64 RC
[2024-04-06] MEDS ORDERED: ACET-1084 PO
[2024-04-06] MEDS ORDERED: LOPE2CAP PO
[2024-04-06] MEDS ORDERED: PROC-8 PO
[2024-04-06] MEDS ORDERED: LISI5TAB22 PO
[2024-04-06] MEDS ORDERED: CETI10TA19 PO
[2024-04-06] MEDS ORDERED: HYOS0.1275 PO
[2024-04-06] MEDS ORDERED: MAGN400O6 PO (00:18)
[2024-04-06] MEDS ORDERED: LORA-268 PO ×2 (00:18)
[2024-04-06] MEDS ORDERED: QUET25TA PO (00:18)
[2024-04-06] MEDS ORDERED: ONDA-243 PO (00:18)
[2024-04-06] MEDS ORDERED: PROM25TA14 PO (00:18)
[2024-04-06] MEDS ORDERED: KEN0.1O TOP (00:18)
[2024-04-06] MEDS ORDERED: NYST30CR34 TOP (00:18)
[2024-04-06] MEDS: morphine 2 MG/ML inj. syringe IV ONE ×2 (02:11→02:15)
[2024-04-06] MEDS: ringers solution, lacted 1,000 ML IV SCH (02:20)
[2024-04-06 02:55] LABS: BILIRUBIN,URINE SMALL (Neg); CLARITY,URINE CLOUDY (Clear); COLOR,URINE AMBER (Yellow); GLUCOSE, URINE NEGATIVE (Neg); KETONES,URINE NEGATIVE (Neg); LEUKOCYTE ESTERASE ,URINE NEGATIVE (Neg); NITRITES, URINE NEGATIVE (Neg); OCCULT BLOOD,URINE MODERATE (Neg); PH,URINE 5.5 (4.8-8.0); PROTEIN,URINE 30 mg/dl (Neg)
[2024-04-06 03:01] LABS: UA COLLECTION TYPE CLN CATCH MIDSTREAM
[2024-04-06 03:04] LABS: SQUAMOUS EPITHELIAL CELL,UR MANY /LPF (FEW)
[2024-04-06 03:05] LABS: BACTERIA,URINE 1+ /HPF (Neg); WBC,URINE 0-4 /HPF (0-4)
[2024-04-06 03:06] LABS: AMORPHOUS URATES 1+; MUCUS STRANDS FEW /LPF (Neg); TRANSITIONAL EPI CELLS,URINE FEW /HPF
[2024-04-06] MEDS ORDERED: acetaminophen 325mg tablet PO PRN (04:00)
[2024-04-06] MEDS ORDERED: morphine 2 MG/ML inj. syringe IV PRN (04:00)
[2024-04-06] MEDS ORDERED: mag hydrox/Alum hydrox/simeth 30ml oral suspension PO PRN (04:00)
[2024-04-06] MEDS ORDERED: potassium Cl 40MEQ/1/2NS 520ml 520 ML IV PRN (04:00)
[2024-04-06] MEDS ORDERED: magnesium hydroxide 30ml (MOM) UD suspension PO PRN (04:00)
[2024-04-06] MEDS ORDERED: magnesium sulf-water 4G/100mL 100 ML IV PRN (04:00)
[2024-04-06] MEDS ORDERED: ondansetron/PF 4mg/2ml inj IV PRN (04:00)
[2024-04-06] MEDS: normal saline 1000ml 1,000 ML IV SCH (04:00)
[2024-04-06] MEDS ORDERED: magnesium sulf-water 2g/50mL 50 ML IV PRN (04:00)
[2024-04-06] MEDS ORDERED: potassium Cl 20 mEq SR tablet PO PRN ×2 (04:00)
[2024-04-06] MEDS ORDERED: magnesium Cl slow-release 64mg tablet PO PRN (04:00)
[2024-04-06 05:15] LABS: POTASSIUM 4.9 MMOL/L (3.5-5.1)
[2024-04-06] MEDS: morphine 2 MG/ML inj. syringe IV PRN (06:07)
[2024-04-06] MEDS: K and/or MAG REPLACEMENT MC SCH (08:00)
[2024-04-06] MEDS: heparin, porcine 5000 units/ml vial SQ SCH (08:39)
[2024-04-06 10:00] LABS: BASOPHILS % (AUTO) 0.4 % (0-1); EOSINOPHILS % (AUTO) 0.1 % (0-6); HEMATOCRIT 38.6 % (35.0-45.0); HEMOGLOBIN 12.5 g/dl (12.0-16.0); LYMPHOCYTES # (AUTO) 1.4 X10'3 (1.1-4.8); LYMPHOCYTES % (AUTO) 11.3 % (21-51); MEAN CORPUSCULAR HEMOGLOBIN 29.8 PG (27.0-31.0); MEAN CORPUSCULAR HGB CONC 32.4 g/dL (33.0-36.5); MEAN PLATELET VOLUME 8.7 FL (7.4-10.4); MONOCYTES # (AUTO) 1.3 X10'3 (0-0.9); MONOCYTES % (AUTO) 10.7 % (2-12); NEUTROPHILS # (AUTO) 9.4 X10'3 (1.8-7.7); NEUTROPHILS % (AUTO) 77.5 % (42-75); PLATELET COUNT 192 X10'3 (140-440); RED CELL DISTRIBUTION WIDTH 12.8 % (11.5-14.5); WHITE BLOOD COUNT 12.2 X10'3 (4.5-11.0)
[2024-04-06 10:13] LABS: APTT 25 SECONDS (22-32); INR 1.1 INR; PROTHROMBIN TIME 11.9 SECONDS (9.0-12.0)
[2024-04-06 10:15] LABS: ALANINE AMINOTRANSFERASE 32 U/L (12-78); ALBUMIN 2.2 G/DL (3.4-5.0); ALBUMIN/GLOBULIN RATIO 0.4 (1.1-1.5); ALKALINE PHOSPHATASE 105 IU/L (46-116); ANION GAP 8 (8-16); ASPARTATE AMINO TRANSFERASE 45 U/L (10-37); BILIRUBIN,TOTAL 0.7 MG/DL (0.1-1.0); BLOOD UREA NITROGEN 38 MG/DL (7-18); BUN/CREATININE RATIO 30.4 (10.0-20.0); CALCIUM 9.2 MG/DL (8.5-10.1); CHLORIDE 103 MMOL/L (99-107); CREATININE 1.25 MG/DL (0.40-0.90); GLUCOSE 141 MG/DL (70-104); SODIUM 140 MMOL/L (135-145); TOTAL CARBON DIOXIDE 29.5 MMOL/L (24-32); TOTAL PROTEIN 7.1 G/DL (6.4-8.2); eCRCL 35 ML/MIN; eGFR 41 ML/MIN
[2024-04-06 11:39] LABS: URINE AMPHETAMINE SCREEN NEGATIVE (Neg); URINE BARBITUATE SCREEN NEGATIVE (Neg); URINE BENZODIAZEPINES SCREEN NEGATIVE (Neg); URINE CANNABINOID SCREEN NEGATIVE (Neg); URINE COCAINE SCREEN NEGATIVE (Neg); URINE METHADONE SCREEN NEGATIVE (Neg); URINE OPIATE SCREEN POSITIVE (Neg); URINE PHENCYCLIDINE SCREEN NEGATIVE (Neg)
[2024-04-06 13:14] VITALS: BP 139/60; PULSE 82; RESP 16; TEMP 98.1; O2SAT 95
== END 2024-04-06 13:27 | disposition home or self-care (01) ==
LOC: ER 16:30 → ED HOLD 04-06 03:59 → INTOOBSV 04-06 03:59
PROVIDERS: ADMIT Internal Medicine Pulmonary Disease; ATTEND Internal Medicine
DX: M25.551 Pain in right hip (principal); R53.1 Weakness; G30.0 Alzheimer's disease with early onset; F02.80 Dementia in other diseases classified elsewhere, unspecified severity, without behavioral disturbance, psychotic disturbance, mood disturbance, and anxiety; I10 Essential (primary) hypertension; E78.5 Hyperlipidemia, unspecified; F32.A Depression, unspecified; M19.90 Unspecified osteoarthritis, unspecified site; Z79.82 Long term (current) use of aspirin; Z88.6 Allergy status to analgesic agent; Z88.5 Allergy status to narcotic agent; Z79.899 Other long term (current) drug therapy
CPT/HCPCS: 70450; 72192; 73502; 73590; 73620; 74150; 80048; 80053; 80305; 81001; 82150; 83690; 84132; 84145; 84484; 85610; 85730; 87040; 93005; 96361; 96374; 99285; A4615; G0378; J7120; 36415; 71045; 85025; 96372; 96376; A4353; J1644; J2270; J7030